=== PATIENT | female | born 1995 | race African-American/Black ===

== ENCOUNTER 2017-05-05 18:51 | Emergency (ER) | payer MEDICAID ==
[~2017-05-05] VITALS: Ht 170.2 cm; Wt 101.0 kg
[2017-05-05] MEDS ORDERED: IBUPROFEN 600MG TABLET PO ONE (23:30)
[2017-05-06 01:16] VITALS: BP 125/84
== END 2017-05-06 01:19 | disposition home or self-care (01) ==
LOC: ER 20:24
DX: S39.012A Strain of muscle, fascia and tendon of lower back, initial encounter (principal); S63.601A Unspecified sprain of right thumb, initial encounter; S80.11XA Contusion of right lower leg, initial encounter; W01.198A Fall on same level from slipping, tripping and stumbling with subsequent striking against other object, initial encounter; Y93.89 Activity, other specified; Y92.513 Shop (commercial) as the place of occurrence of the external cause; Y99.8 Other external cause status; Z98.890 Other specified postprocedural states
CPT/HCPCS: 73130; 73590; 81025; 99284